=== PATIENT | female | born 1995 | race Caucasian/White ===

== ENCOUNTER 2017-01-06 20:37 | Emergency (ER) | payer OTHER ==
[~2017-01-06] VITALS: Ht 162.6 cm; Wt 66.9 kg
[2017-01-06 20:48] VITALS: TEMP 36.8; Ht 162.6 cm; Wt 66.9 kg
[2017-01-06] MEDS ORDERED: BCPILLS PO (21:00)
[2017-01-06] MEDS ORDERED: FLUO20CA35 PO (21:00)
[2017-01-06] MEDS ORDERED: ONDANSETRON INJ 2 MG/ML 2 ML VIAL IV STA (21:16)
[2017-01-06] MEDS ORDERED: SODIUM CHLORIDE 0.9% 1000ML 1,000 ML IV STA (21:35)
[2017-01-06 21:39] LABS: BASO % 0.3 %; BASO ABS # 0.03 K/uL (0-0.2); COMPLETE YES; EOS % 0.1 %; HEMATOCRIT 40.1 % (37-47); IG% 0.2 %; LYMPH % 12.5 %; LYMPH ABS # 1.17 K/uL (1.2-3.4); MEAN CORPUSCULAR HEMOGLOBIN 31.2 pg (25-34); MEAN CORPUSCULAR HGB CONC 33.9 g/dl (32-36); MEAN PLATELET VOLUME 9.3 fL (7.4-10.4); MONO % 3.7 %; NEUT % 83.2 %; PLATELET COUNT 290 K/uL (130-400); RED BLOOD COUNT 4.36 M/uL (4.2-5.4); WHITE BLOOD COUNT 9.35 K/uL (4.8-10.8)
[2017-01-06 21:55] LABS: BUN/CREATININE RATIO 11.4 (10-20); CALCIUM 9.1 mg/dl (8.5-10.1); CREATININE 0.93 mg/dl (0.60-1.20); POTASSIUM 3.8 mmol/L (3.5-5.1)
[2017-01-06 21:58] LABS: ALB/GLOB RATIO 1.3 (0.9-2)
[2017-01-06 22:20] LABS: URINE APPEARANCE CLEAR (CLEAR); URINE BILIRUBIN NEG (NEG); URINE COLOR YELLOW; URINE NITRITE NEG (NEG); URINE PH >= 9.0 (4.5-7.5); URINE SPECIFIC GRAVITY 1.026 (1.000-1.030); UROBILINOGEN NEG (NEG); ZZUR CULT IF INDIC CLEAN CATCH NO
[2017-01-06 22:21] LABS: MANUAL MICROSCOPIC REQUIRED? NO; REVIEW REQ? YES
[2017-01-06 22:22] LABS: SULFASALICYLIC ACID NEG (NEG)
[2017-01-06] MEDS ORDERED: ONDANSETRON HOME PACK 4MG OD TAB PO ONE (22:45)
[2017-01-06] MEDS ORDERED: GI COCKTAIL PO STA (22:48)
[2017-01-06] MEDS ORDERED: ALUMINUM/MAGNESIUM SUSP 30 ML UDC ONE (22:50)
[2017-01-06] MEDS ORDERED: LIDOCAINE HCL 2% VISC SOLN 20 ML UDC ONE (22:50)
[2017-01-06 22:55] LABS: URINE EPITHELIAL CELL AUTO 20-30 /lpf (0-5); URINE MUCUS PRESENT (NONE PRSENT)
[2017-01-06] MEDS ORDERED: ONDA4TAB10 SL (22:56)
--- NOTE | 2017-01-06 22:57 | EMERGENCY ROOM VISIT NOTE ---
History First contact with patient: 21:06 Chief Complaint: VOMITING Stated Complaint: THROWING UP SINCE 8A,BLOOD Nursing Triage Summary: patient states she drank alcohol all day yesterday and has been throwing up since 0800 today and now has blood in her vomit. History of Present Illness The patient is a 21 year old female who presents to the Emergency Room with complaints of vomiting. The patient states that she drank alcohol all day yesterday and has been throwing up since this morning. She reports that there has been some blood in the vomit. She reports that at this time, she is vomiting stomach acid streaked with blood. She reports a burning sensation in her abdomen and throat but denies any abdominal pain. She has not been able to keep anything down today. Review of Systems A complete 10 point review of systems was reviewed with the patient with pertinent positives and negatives as per history of present illness. All else were negative. Social History Smoking Status: Never Smoker Alcohol Use: occasionally Drug Use: none Marital Status: single Housing Status: lives with roommate Occupation Status: [employer] Current/Historical Medications Scheduled Control Pills ( Control Pills), 1 TAB PO DAILY Fluoxetine (Prozac), 20 MG PO QPM Physical Exam Vital Signs Date Time Temp Pulse Resp B/P (MAP) Pulse Ox O2 Delivery O2 Flow Rate FiO2 01/06/17 22:29 69 16 132/96 100 Room Air 01/06/17 20:48 36.8 80 18 144/92 98 Room Air Physical Exam VITALS: Vitals are noted on the nurse's note and reviewed by myself. Vital signs stable. GENERAL: This is a 21-year-old female, in no acute distress, nondiaphoretic, well-developed well-nourished. EARS: External auditory canals clear, tympanic membranes pearly alex without erythema or effusion bilaterally. EYES: Pupils equal round and reactive to light and accommodation. No subconjunctival hemorrhage. MOUTH: Mucous membranes moist. No petechiae. NECK: Supple without nuchal rigidity. HEART: Regular rate and rhythm without murmurs gallops or rubs. LUNGS: Clear to auscultation bilaterally without wheezes, rales or rhonchi. ABDOMEN: Positive bowel sounds x 4. Soft, nontender to palpation. NEURO: Patient was alert and oriented to person place and time. Medical Decision & Procedures Laboratory Results 01/06/17 21:20 Red Blood Count 4.36, Mean Corpuscular Volume 92.0, Mean Corpuscular Hemoglobin 31.2, Mean Corpuscular Hemoglobin Concent 33.9, Mean Platelet Volume 9.3, Neutrophils (%) (Auto) 83.2, Lymphocytes (%) (Auto) 12.5, Monocytes (%) (Auto) 3.7, Eosinophils (%) (Auto) 0.1, Basophils (%) (Auto) 0.3, Neutrophils # (Auto) 7.77, Lymphocytes # (Auto) 1.17, Monocytes # (Auto) 0.35, Eosinophils # (Auto) 0.01, Basophils # (Auto) 0.03 01/06/17 21:20 Test 01/06/17 21:20 01/06/17 21:30 White Blood Count 9.35 K/uL (4.8-10.8) Red Blood Count 4.36 M/uL (4.2-5.4) Hemoglobin 13.6 g/dL (12.0-16.0) Hematocrit 40.1 % (37-47) Mean Corpuscular Volume 92.0 fL (80-100) Mean Corpuscular Hemoglobin 31.2 pg (25-34) Mean Corpuscular Hemoglobin Concent 33.9 g/dl (32-36) Platelet Count 290 K/uL (130-400) Mean Platelet Volume 9.3 fL (7.4-10.4) Neutrophils (%) (Auto) 83.2 % Lymphocytes (%) (Auto) 12.5 % Monocytes (%) (Auto) 3.7 % Eosinophils (%) (Auto) 0.1 % Basophils (%) (Auto) 0.3 % Neutrophils # (Auto) 7.77 K/uL (1.4-6.5) Lymphocytes # (Auto) 1.17 K/uL (1.2-3.4) Monocytes # (Auto) 0.35 K/uL (0.11-0.59) Eosinophils # (Auto) 0.01 K/uL (0-0.5) Basophils # (Auto) 0.03 K/uL (0-0.2) RDW Standard Deviation 43.2 fL (36.4-46.3) RDW Coefficient of Variation 12.8 % (11.5-14.5) Immature Granulocyte % (Auto) 0.2 % Immature Granulocyte # (Auto) 0.02 K/uL (0.00-0.02) Anion Gap 11.0 mmol/L (3-11) Est Creatinine Clear Calc Drug Dose 90.0 ml/min Estimated GFR () 101.8 Estimated GFR (Non- 87.9 BUN/Creatinine Ratio 11.4 (10-20) Calcium Level 9.1 mg/dl (8.5-10.1) Total Bilirubin 0.8 mg/dl (0.2-1) Aspartate Amino Transf (AST/SGOT) 23 U/L (15-37) Alanine Aminotransferase (ALT/SGPT) 20 U/L (12-78) Alkaline Phosphatase 61 U/L (45-117) Total Protein 7.7 gm/dl (6.4-8.2) Albumin 4.3 gm/dl (3.4-5.0) Globulin 3.4 gm/dl (2.5-4.0) Albumin/Globulin Ratio 1.3 (0.9-2) Lipase 93 U/L (73-393) Urine Color YELLOW Urine Appearance CLEAR (CLEAR) Urine pH >= 9.0 (4.5-7.5) Urine Specific [place] 1.026 (1.000-1.030) Urine Protein NEG (NEG) Urine Glucose (UA) NEG (NEG) Urine Ketones 1+ (NEG) Urine Occult Blood NEG (NEG) Urine Nitrite NEG (NEG) Urine Bilirubin NEG (NEG) Urine Urobilinogen NEG (NEG) Urine Leukocyte Esterase NEG (NEG) Urine Test NEG (NEG) Medications Administered Medications (Trade) Dose Ordered Sig/Pillo Route Start Time Stop Time Status Last Admin Dose Admin Ondansetron HCl (Zofran Inj) 4 mg NOW STAT IV 01/06/17 21:16 01/06/17 21:18 DC 01/06/17 21:30 4 MG Sodium Chloride 1,000 ml @ 999 mls/hr Q1H1M STAT IV 01/06/17 21:35 01/06/17 22:35 DC 01/06/17 21:49 999 MLS/HR ED Course The patient was evaluated as above. Labs were drawn and IV access was obtained. Patient was medicated with 4 mg Zofran and 1 L normal saline solution. Patient was reevaluated and states her nausea has improved. She was given something to drink. Patient was complaining of burning in her throat. A GI cocktail was ordered. Discharge instructions were reviewed with the patient. The patient verbalized understanding of my assessment and treatment plan and was discharged home in good condition. Medical Decision Differential diagnosis includes vomiting, gastritis, hematemesis, gastroenteritis, cholecystitis, among others. The patient is a 21-year-old female who presents today complaining of persistent vomiting. She does admit to drinking a significant amount of alcohol all day yesterday. On exam, she is dry heaving and this pain up a small amount of mucus which is blood-tinged. There is not a significant amount of blood in the vomit. Labs revealed no leukocytosis or anemia. Patient is not tachycardic or hypotensive. Symptoms seem to be secondary to alcohol related gastritis. She was treated with IV fluids and Zofran and felt much better. She was able to keep down some Powerade with no difficulty. She was given a GI cocktail. I did encourage her to take Prilosec at home for the next several days. She was given a home pack and prescription for Zofran. She was encouraged to decrease alcohol consumption. Based on the patient's presentation and work up, I feel the patient is stable for outpatient treatment. The patient was educated to return to the emergency department for any worsening of their current condition or new/concerning symptoms. She will follow up with [facility] as needed. Medication Reconcilliation Current Medication List: was personally reviewed by me Blood Pressure Screening Patient's blood pressure: Normal blood pressure Impression Primary Impression: Vomiting Departure Information Dispostion Home / Self-Care Condition GOOD Prescriptions Ondasetron Odt (ZOFRAN ODT) 4 Mg Tab 4 MG SL Q6H for Nausea, #15 TAB Prov: Hansa Hernandez .TANA 01/06/17 Referrals [facility] (PCP) Patient Instructions My [facility] Additional Instructions You have been prescribed Zofran to be used for any nausea or vomiting. Take as prescribed. You should take Prilosec [id number] every day before eating for the next 2 weeks. For pain control, you can use the following [id number] medicines (if >12 yo): - Regular strength (325mg/tab) Tylenol (acetaminophen) 2 tabs every 4-6 hours as needed. Do not exceed 12 tablets in a 24 hour period. Avoid taking more than 4 grams (4000 mg) of Tylenol per day. This includes any other sources of acetaminophen you may take on a regular basis. Follow-up with [facility] as needed. Return to the emergency department with any worsening vomiting, weakness, abdominal pain, or new/concerning symptoms.
[2017-01-06 23:13] VITALS: BP 133/84; PULSE 72; O2SAT 100
== END 2017-01-06 23:14 | disposition home or self-care (01) ==
LOC: C.EDB 20:37 → C.EDA 23:14
DX: R11.10 Vomiting, unspecified (principal)